=== PATIENT | male | born 1990 | race Caucasian/White ===

== ENCOUNTER 2024-06-22 11:53 | Emergency (ER) | payer OTHER, SELFPAY ==
--- OUTSIDE RECORDS SUMMARY | 2024-06-22 11:56 | XMS_ITS | Clinical Summary ---
Author Organization [facility] Address [address] [place] [address] Care Team Providers Care Diamond Broker Name Role Phone None, Provider MD Primary Care Provider Unavaila ble Allergies No known active allergies Medications multi vitamin/mineral s tablet [The details of the medication are not available because there are pending changes by a home health clinician.] 30 tablet 1 Active Additional Information Patient taking differently:1 tablet Oral Daily,Indications: Vitamin Deficiency, Reported on 08/26/2020 metoprolol succinate ER 25 MG 24 hr tablet [The details of the medication are not available because there are pending changes by a home health clinician.] 15 tablet 1 Active Additional Information Patient taking differently: 0.5 tabletOral Daily,Indications: hypertension, Reported on 08/26/2020 melatonin 5 MG tabletIndicatio ns:Insomnia Take 5 mg by mouth nightly at bedtime. Indications: Trouble Sleeping 1 Active ibuprofen 200 MG tabletIndicatio ns:Pain Take 800 mg by mouth every 8 (eight) hours as needed. Indications: Pain 1 Active acetaminophen 500 MG tablet Take 1,000 mg by mouth every 4 (four) hours as needed for Pain. Active naproxen sodium (ALEVE) 220 MG tablet Take 440 mg by mouth 2 (two) times daily as needed. Active vitamin B-1 100 MG tablet Take 1 tablet (100 mg total) by mouth daily. 30 tablet 1 Active HYDROcodone-avni taminophen 5-325 MG tabletIndicatio ns:Acute Pain < 7 Day Supply Take 1 tablet by mouth every 6 (six) hours as needed for Pain. Indications: Acute Pain < 7 Day Supply 1 Active Active Problems Problem Noted Date Diagnosed Date Neuropathy 09/05/2020 Bilateral pain of leg and foot 09/04/2020 Alcohol withdrawal ([facility]) 08/07/2020 Immunizations Name Administration Dates Next Due Tdap (Adacel) 01/19/2021 Tdap (Generic) 06/06/2016 Family History Medical History Relation Comments Cancer Brother Non hodgkins typ e B stage 4 Hypertension Father Hypertension Maternal Grandfather MT Maternal Grandfather Alzheimers Paternal Grandfather Hypertension Paternal Grandfather MT Paternal Grandfather Relation Status Comments Brother Father Alive Maternal Grandfather Paternal Grandfather Social History Tobacco Use Types Packs/Day Years Used Date Smoking Tobacco: Former Cigarettes 1 15 Smokeless Tobacco: Former Chew Quit: 2018 Alcohol Use Standard Drinks/Week Comments Not Currently 5 (1 standard drink = 0.6 oz pur e alcohol) Last drink 09/02/20 Sex and Gender Information Value Date Recorded Sex Assigned at Male 03/02/2021 1:09 PM CHIEF CLIENT OFFICER Legal Sex Male 7:32 PM CDT Gender Identity Male 03/02/2021 1:09 PM CHIEF CLIENT OFFICER Sexual Orientation Straight 03/02/2021 1: 09 PM CHIEF CLIENT OFFICER Last Filed Vital Signs Vital Sign Reading Time Taken Comments Blood Pressure 124/80 03/02/2021 1:03 PM CHIEF CLIENT OFFICER Pulse 120 03/02/2021 1:03 PM CHIEF CLIENT OFFICER Temperature 36.7 C (98.1 F) 01/19/2021 7:11 PM CDT Respiratory Rate 18 01/19/2021 7:11 PM CDT Oxygen Saturation 93% 03/02/2021 1:03 PM CHIEF CLIENT OFFICER Inhaled Oxygen Concentration - - Weight 113.5 kg (250 lb 4.8 oz) 03/02/2021 1:03 PM CHIEF CLIENT OFFICER Height 178.8 cm (5' 10.4 ) 03/02/2021 1:03 PM CS T Body Mass Index 35.51 03/02/2021 1:03 PM CHIEF CLIENT OFFICER Plan of Treatment Health Maintenance Due Date Last Done Comments Annual Physical 1993 Hepatitis B Vaccines (1 of - 19+ 3-dose series) 2009 COVID-19 Vaccine (2023-2 5 season) 2023 Influenza Adult (#1) 2023 DTaP, Tdap and Td Vaccines ( 3 - Td or Tdap) 01/19/2031 01/19/2021, 06/06/2016 Hepatitis C Completed 09/04/2020 HPV Vaccines Aged Out No longer eligi ble based on patient's age to complete this topic Meningococcal B Vaccine Aged Out No l onger eligible based on patient's age to complete this topic Meningococcal Vaccine Aged Out No leonides clem eligible based on patient's age to complete this topic Pneumococcal Vaccine: Pediatrics (0 to 5 Years) and At-Risk Patients (6 to 64 Years) Aged Out No longer eligible b ased on patient's age to complete this topic RSV Immunizations Under 20 Months Aged Out No longer eligible b ased on patient's age to complete this topic Goals Goal Patient Goal Type Associated Problems Recent Progress Patient-Stated? Author Reduce alcohol intake to 0 servings per day Lifestyle No Miriam Webster, BID MANAGER Procedures Procedure Name Priority Date/Time Associated Diagnosis Comments HEPATITIS PANEL,ACUTE Routine 09/04/2020 10:00 PM CDT from Last 3 Months or Most Recently Relevant to Health Maintenance Results * HEPATITIS PANEL,ACUTE (09/04/2020 10:00 PM CDT) HEPATITIS B SURFACE AG NON-REACTI VE NON-REACTI VE 09/04/2020 11:11 PM CDT [facility] HEP B CORE IGM NON-REACTI VE NON-REACTI VE 09/04/2020 11:21 PM CDT [facility] HAV IGM NON-REACTI VE NON-REACTI VE 09/04/2020 11:22 PM CDT [facility] HEPATITIS C AB NON-REACTI VE NON-REACTI VE 09/04/2020 11:21 PM CDT [facility] 09/04/2020 10:0 0 PM CDT Evin Anna DO LABORATORY Final Result [facility] [address] [place] [address], [place] [phone] from Last 3 Months or Most Recently Relevant to Health Maintenance Insurance [employer] Advance Directives * Full Code (Latest Code Status on File) Date Activated Date Inactivated Comments 09/10/2020 9:12 PM 01/19/2021 7:10 PM * Full Code Date Activated Date Inactivated Comments 09/04/2020 2:06 PM 09/05/2020 3:52 PM * Full Code Date Activated Date Inactivated Comments 08/27/2020 2:14 PM 09/04/2020 8:07 AM * Full Code Date Activated Date Inactivated Comments 08/07/2020 3:08 PM 08/19/2020 7:46 PM Care Teams Diamond Broker Relationship Specialty Start Date End Date None, Provider, PCP - General 12/24/19
--- OUTSIDE RECORDS SUMMARY | 2024-06-22 11:56 | XMS_ITS | Clinical Summary ---
Author Organization [facility] Address [address] [place] [id number] Care Team Providers Care Conference Producer Name Role Phone No, Physician Primary Care Provider [phone] Allergies No known active allergies Medications gabapentin (NEURONTIN) 300 mg capsule Take 600 mg by mouth 3 (three) times a day 09/05/2020 Active HYDROcodone-acet aminophen (NORCO) 7.5-325 mg per tabletIndication s:Pain Take 1 tablet by mouth every 6 (six) hours as needed for pain 20 tablet 09/09/2020 Active Social History Tobacco Use Types Packs/Day Years Used Date Smoking Tobacco: Never Assessed Personal Safety Answer Date Recorded Getting School Help Needed Not on file 03/17 Sex and Gender Information Value Date Recorded Sex Assigned at Not on file 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 Gender Identity Not on file Sexual Orientation Not on file Last Filed Vital Signs Vital Sign Reading Time Taken Comments Blood Pressure 136/100 09/09/2020 8:39 AM CDT Pulse 98 09/09/2020 8:39 AM CDT Temperature 36.5 C (97.7 F) 09/09/2020 7:06 AM CDT Respiratory Rate 20 09/09/2020 8:39 AM CDT Oxygen Saturation 99% 09/09/2020 8:39 AM CDT Inhaled Oxygen Concentration - - Weight 110 kg (242 lb 8.1 oz) 09/09/2020 7:06 AM CDT Height 180.3 cm (5' 11 ) 09/09/2020 7:06 AM CDT Body Mass Index 33.82 09/09/2020 7:06 AM CDT Plan of Treatment Not on file Insurance IDPA Care Teams Conference Producer Relationship Specialty Start Date End Date No, Physician PCP - General 04/20/20
--- OUTSIDE RECORDS SUMMARY | 2024-06-22 11:56 | XMS_ITS | Referral Summary ---
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
--- NOTE | 2024-06-22 11:59 | ED.GENADULT ---
HPI - General Adult General Chief complaint: Urogenital-Male Stated complaint: abd pain Time Seen by Provider: 06/22/24 11:59 Source: patient Mode of arrival: ambulatory Limitations: no limitations History of Present Illness HPI narrative: 34-year-old male patient presents to the [facility] with complaints of right groin pain the past 3-4 days. Patient states he did have unprotected sex about 2 weeks ago and states he has been feeling a tangle to the penis whenever he urinates. Denies pain with urination and denies any penile discharge he is aware of but states he could possibly have a STD exposure. Denies fevers, body aches or chills. Denies any abdominal pain, nausea, vomiting or diarrhea. Related Data Allergies Allergy/AdvReac Type Severity Reaction Status Date / Time No Known Allergies Allergy Verified 06/22/24 12:05 Review of Systems Review of Systems: CONSTITUTIONAL: Denies fever, chills, or sweats. EYES: Denies visual changes, redness, or discharge. ENT: Denies rhinorrhea, congestion, sore throat, or otalgia. CARDIOVASCULAR: Denies chest pain, palpitations, or edema. RESPIRATORY: Denies cough or dyspnea. GASTROINTESTINAL: Denies abdominal pain, nausea, vomiting, or diarrhea. GENITOURINARY: Denies dysuria or hematuria. Positive right-sided groin pain with slight pain to the penis. SKIN: Denies rash or itching. MUSCULOSKELETAL: Denies back pain, joint pain, or myalgia. NEUROLOGIC: Denies headache, numbness, or weakness. PSYCHIATRIC: Denies anxiety or depression. PMFSH Comments At the time of my signature I agree with nursing past medical history, surgical, social, and family history. There is no relevant family history pertinent to the presenting complaint. Exam Narrative: GENERAL: Well-appearing, well-nourished, and in no acute distress. HEAD: Normocephalic, atraumatic. EYES: PERRLA and EOMI. ENT: Nares clear, no rhinorrhea or epistaxis. Mucous membranes moist. NECK: Supple. No lymphadenopathy CHEST: Clear to auscultation. No respiratory distress. HEART: Regular rate and rhythm. No murmur heard. Normal peripheral pulses. ABDOMEN: Soft, nontender, nondistended, normal active bowel sounds. GROIN: Patient has tenderness noted to the right side of the groin under the right testicle. Testes appear normal and no pain on palpation. No obvious discharge noted coming from the penis. No obvious hernia and noted on exam. EXTREMITIES: Normal range of motion. No edema. SKIN: Warm, dry, no rash. NEURO: No focal deficits. Alert and oriented x3. Course Course Level of Care: Express Care Visit Vital Signs Vital signs: Vital Signs Temperature 36.3 C L 06/22/24 12:06 Pulse Rate 95 06/22/24 12:06 Respiratory Rate 20 06/22/24 12:06 Blood Pressure 122/77 06/22/24 12:06 Pulse Oximetry 98 06/22/24 12:06 Oxygen Delivery Room Air 06/22/24 12:06 Temperature 36.3 C L 06/22/24 12:06 Pulse Rate 95 06/22/24 12:06 Respiratory Rate 20 06/22/24 12:06 Blood Pressure 122/77 06/22/24 12:06 Pulse Oximetry 98 06/22/24 12:06 Oxygen Delivery Room Air 06/22/24 12:06 Vital signs reviewed. 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 However because patient had a recent sexual encounter without protection about 2 weeks ago and does have some penile symptoms we will go ahead and test him for STD and treat him today. Discussed with patient that his urine dip was negative. Patient does have an appointment for follow-up with his primary doctor in 2 weeks. Discussed with him if he continues to have the grain point pain at that time he will need to see his doctor and possibly get an ultrasound. Patient verbalized understanding denies any other questions or concerns at this time. Differential Diagnosis Differential Diagnosis: Differential diagnosis: Appendicitis, ovarian torsion, gallbladder disease, ovarian torsion, pancreatitis, lower lobe pneumonia,AAA, AMI or ACS, DKA, diverticulitis. Vital Signs Vital Signs: Vital Signs Temperature 36.3 C L 06/22/24 12:06 Pulse Rate 95 06/22/24 12:06 Respiratory Rate 20 06/22/24 12:06 Blood Pressure 122/77 06/22/24 12:06 Pulse Oximetry 98 06/22/24 12:06 Oxygen Delivery Room Air 06/22/24 12:06 Temperature 36.3 C L 06/22/24 12:06 Pulse Rate 95 06/22/24 12:06 Respiratory Rate 20 06/22/24 12:06 Blood Pressure 122/77 06/22/24 12:06 Pulse Oximetry 98 06/22/24 12:06 Oxygen Delivery Room Air 06/22/24 12:06 Lab Data Labs: Lab Results 06/22/24 Range/Units 12:31 POC Urine Color Yellow POC Urine Clarity Clear POC Urine pH 6.0 POC Ur Specif [place] 1.025 POC Urine Protein Negative (Negative) POC Ur Glucose (UA) Negative (Negative) POC Urine Ketones Negative (Negative) POC Urine Blood Negative (Negative) POC Urine Nitrite Negative (Negative) POC Urine Bilirubin 1+ (Negative) POC Urine Urobilinogen 0.2 POC U Leukocyte Esteras Negative (Negative) Critical Care Time Critical Care Time Critical Care Time: No Discharge Plan Discharge Clinical Impression: Possible exposure to STD Patient Disposition: Home, Self-Care Condition: Stable Instructions: Antibiotic Form, Sexually Transmitted Diseases (ED) Additional Instructions: Please do not engage in sexual activity for at least 7 days after being treated for STDs Take prescribed medication as directed. Contact your health care provider or report to the emergency department if: You have genital swelling or pain, or unusual bleeding. You have joint pain, rash, swollen lymph nodes or night sweats. You are severe abdominal pain. You have a fever. Symptoms do not go away or they get worse even after treatment. You have bleeding or pain during sex. Prevent the spread of an STD: Use condoms. Use a latex, and if you have oral, genital or anal sex. Use a polyurethane Priyanka if you're allergic to latex. Do not douche. Douching upsets the normal bounds of bacteria that are found in your vagina. Do Not have Sex with someone who has an STD, this includes oral and anal sex. Limit sexual partners. Do not have sex during treatment. Get screening tests regularly if you're sexually active. Give vaccinated, vaccines may help your risk of some STDs. Patient Language: Dutch Prescriptions: New azithromycin 500 mg tablet 1,000 mg PO ONCE 1 Days Qty: 2 0RF metronidazole 500 mg tablet 2,000 mg PO ONCE Qty: 4 0RF ondansetron 4 mg tablet,disintegrating 4 mg PO Q6H PRN (Reason: nausea and vomiting) Qty: 7 0RF Follow-up/Referrals: Motwani,Jeff K., MD [Primary Care Provider] - Time of Disposition: 13:03
[2024-06-22 12:06] VITALS: BP 122/77; PULSE 95; RESP 20; TEMP 36.3; O2SAT 98
[2024-06-22 12:36] LABS: EDUAAPPEAR Clear; EDUABILI 1+ (Negative); EDUABLOOD Negative (Negative); EDUACOLOR1 Yellow; EDUAGLUCOSE Negative (Negative); EDUAKETONE Negative (Negative); EDUALEUKO Negative (Negative); EDUANITRATE Negative (Negative); EDUAPROTEIN Negative (Negative); EDUASPGRAVITY 1.025; EDUAUROBILI 0.2
[2024-06-22] MEDS: cefTRIAXone 500 MG, LIDOCAINE 1% LOCAL INJ 1 ML IM (13:08)
[2024-06-22 19:46] LABS: Trichomonas Vag PCR NOT DETECTED (NOT DETECTE)
[2024-06-22 20:08] LABS: Chlamydia trachomatis NOT DETECTED (NOT DETECTE); Neisseria gonorrhoeae PCR NOT DETECTED (NOT DETECTE)
== END 2024-06-22 13:14 | disposition home or self-care (01) ==
PROVIDERS: Emergency Provider Nurse Practitioner Family; PCP Family Medicine
DX: R10.31 Right lower quadrant pain (principal); N48.89 Other specified disorders of penis; Z11.3 Encounter for screening for infections with a predominantly sexual mode of transmission; R73.03 Prediabetes; Z86.16 Personal history of COVID-19
CPT/HCPCS: 81003; 87086; 87491; 87591; 87661; 96372; 99203; G0463; J0696; J2003